=== PATIENT | male | born 1985 | race Caucasian/White ===

== ENCOUNTER → 2019-12-30 09:49 | Outpatient (CLI) | payer OTHER, SELFPAY ==
[2019-12-31 18:42] LABS: COVID19 Sendout Not Detected (Not Detect)
== END ==
PROVIDERS: Visit Provider Physician Assistant
DX: Z11.59 Encounter for screening for other viral diseases (principal)
CPT/HCPCS: 87635

== ENCOUNTER → 2023-04-27 09:35 | Outpatient (CLI) | payer OTHER, SELFPAY ==
[2023-04-27 10:05] LABS: Add Manual Diff / Slide Review NO; Basophils Absolute Auto 100 /uL (0-100); Basophils Percent Auto 1.1 % (0-2); Eosinophils Absolute Auto 200 /uL (0-450); Eosinophils Percent Auto 3.4 % (2-4); Hematocrit 43.3 % (41-53); Hemoglobin 15.2 g/dL (13.5-17.5); Lymphocytes Absolute Auto 2400 /uL (1100-4500); Lymphocytes Percent Auto 33.4 % (25-40); Mean Corpuscular Hemoglobin 31.9 PG (26-34); Mean Corpuscular Volume 91.2 fL (80-100); Monocytes Absolute Auto 900 /uL (0-900); Monocytes Percent Auto 12.8 % (3-14); Neutrophils Absolute Auto 3500 /uL (1500-7000); Neutrophils Percent Auto 49.3 % (50-75); Platelet Count 255 X10^3/uL (150-400); Red Blood Cell Count 4.75 X10^6/uL (4.5-5.9); Red Cell Distribution Width 13.2 % (11.6-14.8); White Blood Cell Count 7.1 X10^3/uL (4.5-11.0)
[2023-04-27 10:29] LABS: Alanine Aminotransferase 36 IU/L (<50); Albumin 4.4 g/dL (3.5-5.0); Albumin Globulin Ratio 1.4 (1.0-2.8); Alkaline Phosphatase 39 U/L (38-126); Aspartate Aminotransferase 34 IU/L (17-59); BUN Creatinine Ratio 19.2 (6-22); Bilirubin Total 0.8 mg/dL (0.2-1.3); Blood Urea Nitrogen 15 mg/dL (9-20); Calcium 9.7 mg/dL (8.4-10.2); Carbon Dioxide 28 mmol/L (22-32); Chloride 100 mmol/L (98-107); Cholesterol 204 mg/dL (140-199); Estimated Glomerular Filt Rate > 60 mL/min (>60); Globulin 3.1 g/dL (1.7-4.1); Glucose 106 mg/dL (70-100); HDL Cholesterol 61 mg/dL (40-60); HEMOLYSIS < 15 (0-50); LDL Cholesterol Calculated 126 mg/dL (<100); Potassium 4.2 mmol/L (3.4-5.1); Sodium 134 mmol/L (137-145); Total Protein 7.5 g/dL (6.3-8.2); Triglycerides 85 mg/dL (35-150)
== END ==
PROVIDERS: PCP Family Medicine; Referring Provider Family Medicine; Visit Provider Family Medicine
DX: Z13.220 Encounter for screening for lipoid disorders (principal)
CPT/HCPCS: 36415; 80053; 80061; 85025

== ENCOUNTER → 2025-04-05 09:11 | Outpatient (CLI) | payer OTHER, SELFPAY ==
[2025-04-05 09:55] LABS: Add Manual Diff / Slide Review NO; Hematocrit 42.0 % (41-53); Hemoglobin 14.9 g/dL (13.5-17.5); Lymphocytes Absolute Auto 2100 /uL (1100-4500); Mean Corpuscular HGB Conc 35.5 % (30-36); Mean Corpuscular Hemoglobin 32.3 PG (26-34); Mean Corpuscular Volume 91.0 fL (80-100); Platelet Count 285 X10^3/uL (150-400)
[2025-04-05 10:09] LABS: Alanine Aminotransferase 28 IU/L (<50); Albumin 4.4 g/dL (3.5-5.0); Albumin Globulin Ratio 1.7 (1.0-2.8); Alkaline Phosphatase 40 U/L (38-126); Blood Urea Nitrogen 15 mg/dL (9-20); Calcium 9.3 mg/dL (8.4-10.2); Carbon Dioxide 27 mmol/L (22-32); Chloride 103 mmol/L (98-107); Estimated Glomerular Filt Rate > 60 mL/min (>60); Globulin 2.6 g/dL (1.7-4.1); Glucose 103 mg/dL (70-99); HEMOLYSIS < 15 (0-50); Potassium 4.3 mmol/L (3.4-5.1); Sodium 137 mmol/L (137-145); Total Protein 7.0 g/dL (6.3-8.2)
== END ==
PROVIDERS: PCP Family Medicine; Referring Provider Physician Assistant; Visit Provider Physician Assistant
DX: L40.0 Psoriasis vulgaris (principal)
CPT/HCPCS: 36415; 80053; 85025; 86480

== ENCOUNTER 2025-04-07 15:38 | Emergency (ER) | payer OTHER, SELFPAY ==
[2025-04-07 15:42] VITALS: BP 131/71; PULSE 78; RESP 18; TEMP 36.8; O2SAT 95; BMI 23.7
--- NOTE | 2025-04-07 15:55 | ED_ITS ---
HPI - Extremity Injury (Upper)
--- NOTE | 2025-04-07 15:55 | ED.UPPEXIN ---
HPI - Extremity Injury (Upper) <Emerald Raza PA-C - Last Filed: 04/07/25 18:59> General Chief Complaint: Extremity Injury, Upper Stated Complaint: R hand laceration Time Seen by Provider: 04/07/25 15:52 Source: patient Mode of arrival: Ambulatory History of Present Illness HPI narrative: Mr. Adam is a very pleasant 40-year-old male with no reported past medical history presents to emergency department for a laceration to his right hand/thumb that occurred prior to arrival. Patient was working with sheet metal when he accidentally sliced his right thumb base. It is a linear laceration, there is active bleeding that is controlled with pressure. He is unsure of his last tetanus shot. He denies any other injuries or concerns, no blood thinner use. He has full range of motion of his right hand. He is not concerned that there are any foreign bodies as it was an intact piece of sheet metal. Related Data Home Medications ?Medication ?Instructions ?Recorded ?Confirmed risankizumab-rzaa 150 mg/mL 150 mg SUBCUT Q12W 05/02/24 05/02/24 subcutaneous pen injector (Skyrizi) Allergies Allergy/AdvReac Type Severity Reaction Status Date / Time No Known Drug Allergies Allergy Verified 04/07/25 15:43 Review of Systems <Emerald Raza PA-C - Last Filed: 04/07/25 18:59> Review of Systems ROS Unobtainable: All systems reviewed & are unremarkable except as noted in HPI and below Patient History <Emerald Raza PA-C - Last Filed: 04/07/25 18:59> Social History Smoking Status: Current every day smoker Smoking Status: Current every day smoker Exam <Emerald Raza PA-C - Last Filed: 04/07/25 18:59> Narrative Exam Narrative: GENERAL: 40 year old patient appears stated age. Well-developed patient, in no acute distress. HEAD: Atraumatic. Normocephalic. EYES: No scleral icterus. No injection or drainage. NECK: Trachea midline. CARDIOVASCULAR: Regular rate RESPIRATORY: ?Nonlabored respirations. ?Speaking in clear, full sentences. ? EXTREMITIES: 3cm linear laceration on palmar aspect of Right thumb base. Bleeding controlled with direct pressure. Patient is still able to flex and extend at the MCP in the D IP, brisk cap refill in the fingertip, sensation intact to light touch in the fingertip. NEURO: AOx3. ?Clear speech. ?Moves all 4 extremities appropriately. SKIN: Right hand laceration described above. Initial Vital Signs Initial Vital Signs: Vital Signs Temperature 98.2 F 04/07/25 15:42 Pulse Rate 78 04/07/25 15:42 Respiratory Rate 18 04/07/25 15:42 Blood Pressure 131/71 04/07/25 15:42 Pulse Oximetry 95 04/07/25 15:42 Oxygen Delivery Method Room Air 04/07/25 15:42 <Freda Sharma DO - Last Filed: 04/10/25 13:22> Initial Vital Signs Initial Vital Signs: Vital Signs Temperature 98.2 F 04/07/25 15:42 Pulse Rate 78 04/07/25 15:42 Respiratory Rate 18 04/07/25 15:42 Blood Pressure 131/71 04/07/25 15:42 Pulse Oximetry 95 04/07/25 15:42 Oxygen Delivery Method Room Air 04/07/25 15:42 Procedures <LUIS Ortiz Last Filed: 04/07/25 18:59> Laceration Repair Laceration 1: Site: hand Side (If applicable): right Size (cm): 3 Description: linear Depth: simple, single layer Local Anesthetic: lidocaine 1% Amount of anesthesia used (mL): 5 Pre-repair: wound explored, irrigated extensively (Irrigated with Betadine) and deep structures intact Skin layer closed with: nylon Skin layer suture size: 4-0 Number of sutures: 5 Technique: simple, interrupted Course <LUIS Ortiz Last Filed: 04/07/25 18:59> Orders Ordered: Discontinued Medications Bacitracin (Bacitracin Oint 0.9 Gm Pckt) 1 applic TOP NOW ONE Stop: 04/07/25 15:54 Last Admin: 04/07/25 17:12 Dose: 1 applic Documented By: RB Diphtheria/Tetanus/Acell Pertussis (Tet,Diph,Pertuss(Acell),Vac/Pf 0.5 Ml Syringe) 0.5 ml IM .ONCE ONE Stop: 04/07/25 15:54 Last Admin: 04/07/25 17:12 Dose: 0.5 ml Documented By: RB Vital Signs Vital signs: Vital Signs - 8 hr 04/07/25 15:42 04/07/25 17:59 Temperature 98.2 F Pulse Rate 78 75 Respiratory Rate 18 18 Blood Pressure 131/71 132/72 Pulse Oximetry 95 99 Oxygen Delivery Method Room Air Room Air <Freda Sharma DO - Last Filed: 04/10/25 13:22> Orders Ordered: Discontinued Medications Bacitracin (Bacitracin Oint 0.9 Gm Pckt) 1 applic TOP NOW ONE Stop: 04/07/25 15:54 Last Admin: 04/07/25 17:12 Dose: 1 applic Documented By: RB Diphtheria/Tetanus/Acell Pertussis (Tet,Diph,Pertuss(Acell),Vac/Pf 0.5 Ml Syringe) 0.5 ml IM .ONCE ONE Stop: 04/07/25 15:54 Last Admin: 04/07/25 17:12 Dose: 0.5 ml Documented By: RB Vital Signs Vital signs: Vital Signs - 8 hr 04/07/25 15:42 04/07/25 17:59 Temperature 98.2 F Pulse Rate 78 75 Respiratory Rate 18 18 Blood Pressure 131/71 132/72 Pulse Oximetry 95 99 Oxygen Delivery Method Room Air Room Air MDM - Extremity Injury (Upper) <Emerald Raza PA-C - Last Filed: 04/07/25 18:59> Medical Records Attestation: I reviewed the patient's medical records. MDM Narrative Medical decision making narrative: 40-year-old male with no reported past medical history presents to emergency department for a laceration to his right hand/thumb that occurred prior to arrival. Differential diagnosis includes but isn't limited to laceration, foreign body, etc. On exam patient is in no acute distress, nontoxic-appearing, all vital signs within normal limits. He is on linear laceration on his right hand, he has full range of motion of his right hand, he is neurovascularly intact, bleeding is controlled with direct pressure. We will update Tdap and proceed with wound repair. Patient's wound was anesthetized, cleansed and irrigated extensively and repaired using 5 simple interrupted sutures. Bacitracin and a nonadherent dressing was applied by myself. Discussed proper wound care with the patient and suture removal in 10 days. Discussed strict ER return precautions for any signs or symptoms of infection. He verbalized understanding of all information agreeable with the plan. He is stable for discharge home. Discharge Plan Departure Patient Disposition: Home Clinical Impression: Laceration of hand, right Qualifiers: Encounter type: initial encounter Foreign body presence: without foreign body Qualified Code(s): S61.411A - Laceration without foreign body of right hand, initial encounter Instructions: DI for Laceration Repair Activity Restrictions/Additional Instructions: Dear Mr. Adam, Thank you for coming to the emergency department. Today you had a laceration to your right hand. We have placed 5 sutures. They need to be removed in 10 days. You may do this in your doctor's office, the [id number], or here if necessary. Please keep the dressing on your wound clean, dry, and intact for the next 24 hours. After this time, you may remove the dressing and gently clean the wound with soap and water, then pat dry. Keep the wound clean and covered. Avoid soaking the wound in any water such as a bath, pool, or the ocean. If you develop any signs of wound infection such as increased redness, pus drainage, streaking redness, or fevers, please return to the ER immediately for evaluation. Once sutures are removed and the wound has healed, apply sunscreen daily to reduce the appearance of scars. We updated your tetanus shot today. Please follow up with your primary care doctor within the next 2-3 days for ER follow-up. (If you do not have a PCP you can call [phone]. ?to schedule an appointment with an [facility] Primary Care Provider) IF YOU DEVELOP ANY NEW OR WORSENING SYMPTOMS, RETURN TO THE ER! Please read the attached instructions, they highlight more specific treatments and interventions for you at home. Thank you for letting me participate in your care, Emerald Raza PA-C Prescriptions: No Action Skyrizi 150 mg/mL pen injector 150 mg SUBCUT Q12W Referrals: Alfonzo Holguin MD [Primary Care Provider, Family Practice] Stand Alone Forms: Patient Portal/API ED Sign-out <Freda Sharma, - Last Filed: 04/10/25 13:22> Cosign ED Attending [place] Attestation: I was available for consultation.
[2025-04-07] MEDS: BACITRACIN OINT 0.9 GM PCKT 1 APPLIC TOP (17:12)
[2025-04-07] MEDS: TET,DIPH,PERTUSS(ACELL),VAC/PF 0.5 ML SYRINGE IM (17:12)
[2025-04-07 17:59] VITALS: BP 132/72; PULSE 75; RESP 18; O2SAT 99
== END 2025-04-07 18:01 | disposition home or self-care (01) ==
PROVIDERS: Emergency Provider Physician Assistant; PCP Family Medicine
DX: S61.411A Laceration without foreign body of right hand, initial encounter (principal); W26.9XXA Contact with unspecified sharp object(s), initial encounter; Z23 Encounter for immunization
CPT/HCPCS: 12002; 90471; 99283; 90715